=== PATIENT | female | born 1960 | race Caucasian/White ===

== ENCOUNTER → 2020-06-11 | Outpatient (CLI) | payer OTHER ==
[~2020-06-11] MED LIST: IOHEXOL 240 MG/ML 50ML VIAL. ONE; IOHEXOL 240 MG/ML 50ML VIAL. PO ONE; IOHEXOL 300 MG/ML 75 ML VIAL. IV ONE
[2020-06-11 09:38] LABS: GFR 46.1
[2020-06-11 09:44] LABS: CREATININE 1.2 mg/dL (0.6-1.0)
--- NOTE | 2020-06-11 13:50 | RAD ---
EXAM: CT Abdomen and Pelvis with IV contrast INDICATION: Reason: ABDOMINAL PAIN,WORSE ON THE RIGHT SIDE / Spl. Instructions: DRINKING [id number] / History: TECHNIQUE: Multi-detector row CT images were acquired from the lung bases through the abdomen and pelvis with the use of IV contrast. Sagittal and coronal images were acquired from the transaxial data. All CT scans performed at this facility utilize dose optimization techniques as appropriate to the exam, including the following: Automated exposure control and adjustment of the mA and/or KV according to patient size (this includes techniques or standardized protocols for targeted exams where dose is indication/reason for exam). IV CONTRAST: Administered ORAL CONTRAST: Administered COMPARISON: None FINDINGS: LOWER CHEST: Unremarkable LIVER: Diffuse fatty infiltration. BILIARY SYSTEM: Gallbladder contains a few partly calcified gallstones. Bile ducts are not dilated. PANCREAS: Unremarkable SPLEEN: Unremarkable ADRENALS: Unremarkable KIDNEYS & URETERS: Unremarkable BLADDER: Unremarkable REPRODUCTIVE ORGANS: Unremarkable GASTROINTESTINAL: The stomach, small bowel, and colon show no evidence of obstruction, perforation or acute inflammation. There is interposition of large bowel over the liver.. The appendix is normal. MESENTERY/PERITONEUM/RETROPERITONEUM: Unremarkable VASCULAR: Unremarkable LYMPH NODES: No adenopathy OSSEOUS & SOFT TISSUES: Chronic anterior compression fracture at L1 with superimposed moderate-sized Schmorl's node. IMPRESSION: Fatty liver, cholelithiasis, and colonic interposition over the liver. Otherwise no specific findings to explain predominately right-sided abdominal pain is noted. Electronically signed by: Audelia Ayala MD (06/11/2020 1:47 PM) [id number]
== END | disposition home or self-care (01) ==
LOC: CT 07:56
PROVIDERS: ATTEND Internal Medicine Gastroenterology
DX: K80.20 Calculus of gallbladder without cholecystitis without obstruction (principal); S32.010A Wedge compression fracture of first lumbar vertebra, initial encounter for closed fracture; M51.46 Schmorl's nodes, lumbar region; K76.0 Fatty (change of) liver, not elsewhere classified; X58.XXXA Exposure to other specified factors, initial encounter; Y93.89 Activity, other specified; Y92.89 Other specified places as the place of occurrence of the external cause; Y99.8 Other external cause status
CPT/HCPCS: 36415; 74177; 82565; 84520; Q9967